=== PATIENT | female | born 1965 | race Caucasian/White ===

== ENCOUNTER → 2017-08-22 | Outpatient (CLI) | payer OTHER ==
[~2017-08-22] MED LIST: CLONAZEPAM0.5 MG PO; FLONASE NASAL S16 GM NS; LAMICTAL100 MG PO; VIIBRYD20 MG PO; ZYRTEC10 MG PO; ZYRTEC5 MG PO
== END ==
LOC: MC.RAD 07-17 07:40
DX: Z12.31 Encounter for screening mammogram for malignant neoplasm of breast (principal)

== ENCOUNTER → 2018-09-14 | Outpatient (REF) ==
[2018-09-14 19:15] LABS: RED BLOOD COUNT 4.06 M/mm3 (4.10-5.30)
[2018-09-14 19:16] LABS: BASO % 0.3 % (0.0-2.0); GRAN # 7.1 (1.4-6.5); GRAN % 92.9 % (42.2-75.2); HEMATOCRIT 36.8 % (37.0-47.0); HEMOGLOBIN 12.4 g/dl (12.5-16.0); LYMPH # 0.4 (1.2-3.4); LYMPH % 5.6 % (20.0-51.0); MEAN CELL VOLUME 91 fl (80.0-100.0); MEAN CORPUSCULAR HEMOGLOBIN 31 pg (27.0-31.0); MEAN CORPUSCULAR HGB CONC 34 g/dl (33.0-37.0); MEAN PLATELET VOLUME 10.4 fl (7.4-10.4); MONO # 0.1 (0.1-0.6); MONO % 0.7 % (1.7-9.3); PLATELET COUNT 274 K/mm3 (130-400); REDCELL DISTRIBUTION WIDTH-CV 12.5 % (11.5-14.5)
[2018-09-14 19:24] LABS: ALBUMIN 4.1 gm/dL (3.5-5.0); BILIRUBIN,TOTAL 0.2 mg/dL (0.0-1.0); CALCIUM 9.2 mg/dL (8.4-10.2); CREATININE, serum 0.72 mg/dL (0.52-1.25); POTASSIUM 3.7 mmol/L (3.4-5.0); TOTAL PROTEIN 7.1 gm/dL (6.4-8.2)
== END ==
LOC: ZMSC 19:09
PROVIDERS: Internal Medicine Nephrology
DX: Z01.89 Encounter for other specified special examinations (principal)

== ENCOUNTER 2018-10-26 08:00 | Outpatient (RCR) | payer OTHER | END 2018-12-27 | disposition home or self-care (01) | LOC: MKS.ESL.PT | DX: Z47.89 Encounter for other orthopedic aftercare (principal) ==

== ENCOUNTER → 2021-12-07 | Outpatient (CLI) | payer OTHER | LOC: COL.RAD 07:24 | DX: K80.20 Calculus of gallbladder without cholecystitis without obstruction (principal) | CPT/HCPCS: Q9967 ==

== ENCOUNTER → 2024-05-09 | Outpatient (CLI) | payer OTHER | LOC: MC.RAD 11:03 | DX: Z12.31 Encounter for screening mammogram for malignant neoplasm of breast (principal); N64.89 Other specified disorders of breast ==